=== PATIENT | male | born 1990 | race Caucasian/White ===

== ENCOUNTER 2017-03-28 19:50 | Emergency (ER) | payer SELFPAY ==
[~2017-03-28] VITALS: Ht 177.8 cm; Wt 81.6 kg
[~2017-03-28 19:50] MED LIST: ANAPROX DS550 MG PO; BACTRIM DS 8001 TA1 PO; FLEXERIL10 MG PO; FLONASE 0.05% 121 EA NAS; FLOVENT INH; HYDROCODONE BIT1 T11 PO; KEFLEX500 MG PO; MOTRIN800 MG PO; NAPROSYN500 MG PO; NORCO 325 MG-51 TAB PO; PERCOCET 325 MG1 TA7 PO; TOBREX OPHTH S2.5 ML OPH; TRAMADOL HCL50 MG PO; VICODIN 5/500 505 MG PO; VICODIN 500 MG-1 TAB PO; [UNRECOGNIZED DRUG - OTHER]
[2017-03-28] MEDS ORDERED: BUPRENORPHINE-N1 TAB SL (20:08)
[2017-03-28] MEDS ORDERED: CLARITIN10 MG PO (20:27)
== END 2017-03-28 20:48 | disposition home or self-care (01) ==
LOC: ED 19:50
DX: T78.40XA Allergy, unspecified, initial encounter (principal); H10.11 Acute atopic conjunctivitis, right eye; F17.200 Nicotine dependence, unspecified, uncomplicated; Z79.899 Other long term (current) drug therapy; X58.XXXA Exposure to other specified factors, initial encounter

== ENCOUNTER → 2018-02-16 | Outpatient (CLI) | payer BC ==
[~2018-02-16] MED LIST changes: +BUPRENORPHINE-N1 TAB SL; +CLARITIN10 MG PO
[2018-02-16 15:30] LABS: URINE AMPHETAMINES < 1000 (1000ng/ml); URINE BARBITURATES < 200 (200ng/ml); URINE BENZODIAZEPINES < 200 (200ng/ml); URINE CANNABINOIDS (THC) < 50 (50ng/ml); URINE COCAINE < 300 (300ng/ml); URINE METHADONE < 300 (300ng/ml); URINE OPIATES < 300 (300ng/ml); URINE PHENCYCLIDINE < 25 (25ng/ml)
== END | disposition home or self-care (01) ==
LOC: LAB 14:55
PROVIDERS: Internal Medicine
DX: F11.20 Opioid dependence, uncomplicated (principal)

== ENCOUNTER → 2018-11-30 | Outpatient (CLI) | payer BC ==
[2018-11-30 15:16] LABS: URINE AMPHETAMINES < 1000 (1000ng/ml); URINE BARBITURATES < 200 (200ng/ml); URINE BENZODIAZEPINES < 200 (200ng/ml); URINE CANNABINOIDS (THC) < 50 (50ng/ml); URINE COCAINE < 300 (300ng/ml); URINE METHADONE < 300 (300ng/ml); URINE OPIATES < 300 (300ng/ml)
[2018-11-30 15:17] LABS: URINE PHENCYCLIDINE < 25 (25ng/ml)
== END | disposition home or self-care (01) ==
LOC: LAB 14:18
PROVIDERS: Internal Medicine
DX: F11.20 Opioid dependence, uncomplicated (principal)

== ENCOUNTER → 2019-09-18 | Outpatient (CLI) | payer BC ==
[2019-09-18 16:03] LABS: URINE AMPHETAMINES < 1000 (1000ng/ml); URINE BARBITURATES < 200 (200ng/ml); URINE BENZODIAZEPINES < 200 (200ng/ml); URINE CANNABINOIDS (THC) < 50 (50ng/ml); URINE COCAINE < 300 (300ng/ml); URINE METHADONE < 300 (300ng/ml); URINE OPIATES < 300 (300ng/ml)
[2019-09-18 16:04] LABS: URINE PHENCYCLIDINE < 25 (25ng/ml)
== END | disposition home or self-care (01) ==
LOC: LAB 13:54
PROVIDERS: Internal Medicine
DX: F11.20 Opioid dependence, uncomplicated (principal)

== ENCOUNTER → 2020-07-08 | Outpatient (CLI) | payer BC ==
[2020-07-08 14:29] LABS: URINE AMPHETAMINES < 1000 (1000ng/ml); URINE BARBITURATES < 200 (200ng/ml); URINE BENZODIAZEPINES < 200 (200ng/ml); URINE CANNABINOIDS (THC) < 50 (50ng/ml); URINE COCAINE < 300 (300ng/ml); URINE METHADONE < 300 (300ng/ml); URINE OPIATES < 300 (300ng/ml)
[2020-07-08 14:30] LABS: URINE PHENCYCLIDINE < 25 (25ng/ml)
== END | disposition home or self-care (01) ==
LOC: LAB 14:02
PROVIDERS: ATTEND Internal Medicine
DX: F11.20 Opioid dependence, uncomplicated (principal)

== ENCOUNTER → 2020-10-08 | Outpatient (CLI) | payer BC | END | disposition home or self-care (01) | LOC: CT 10:00 | PROVIDERS: ATTEND Podiatrist Foot & Ankle Surgery | DX: M11.272 Other chondrocalcinosis, left ankle and foot (principal) ==

== ENCOUNTER → 2021-07-31 | Outpatient (CLI) | payer OTHER | END | disposition home or self-care (01) | LOC: COVID19 15:44 | PROVIDERS: ATTEND Internal Medicine | DX: Z11.52 Encounter for screening for COVID-19 (principal) ==

== ENCOUNTER → 2021-10-30 | Outpatient (CLI) | payer BC | END | disposition home or self-care (01) | LOC: COVID19 16:56 | PROVIDERS: ATTEND Internal Medicine | DX: U07.1 COVID-19 (principal) ==

== ENCOUNTER → 2022-02-25 | Outpatient (CLI) | payer OTHER ==
[2022-02-25 11:17] LABS: URINE AMPHETAMINES < 1000 (1000ng/ml); URINE BARBITURATES < 200 (200ng/ml); URINE BENZODIAZEPINES < 200 (200ng/ml); URINE CANNABINOIDS (THC) < 50 (50ng/ml); URINE COCAINE < 300 (300ng/ml); URINE METHADONE < 300 (300ng/ml); URINE OPIATES < 300 (300ng/ml)
[2022-02-25 11:18] LABS: URINE PHENCYCLIDINE < 25 (25ng/ml)
== END | disposition home or self-care (01) ==
LOC: LAB 10:52
PROVIDERS: ATTEND Internal Medicine
DX: F11.20 Opioid dependence, uncomplicated (principal)

== ENCOUNTER → 2023-12-15 | Outpatient (CLI) | payer OTHER ==
[~2023-12-15] MED LIST changes: +AMOX-CLAV 875-1 EACH PO
[2023-12-15 11:35] LABS: BASO % 0.9 % (0.0-1.0); EOS # 0.3 10*3/uL (0.0-0.4); EOS % 7.6 % (1.0-4.0); HEMATOCRIT 47.3 % (42.0-52.0); LYMPH # 1.3 10*3/uL (1.3-4.4); LYMPH % 28.7 % (27.0-41.0); MEAN CELL VOLUME 85.4 fl (80.0-94.0); MEAN CORPUSCULAR HGB CONC 32.8 g/dl (33.0-37.0); MEAN PLATELET VOLUME 9.4 fl (9.6-12.3); MONO # 0.4 10*3/uL (0.1-1.0); MONO % 8.5 % (3.0-9.0); NEUT # 2.4 10*3/uL (2.3-7.9); NEUT % 54.1 % (47.0-73.0); PLATELET COUNT AUTOMATED 211 10*3/uL (130-400); RED BLOOD COUNT 5.54 10*6/uL (4.50-5.90); RED CELL DISTRI WIDTH 12.5 % (0-14.5); WHITE BLOOD COUNT 4.4 10*3/uL (4.8-10.8)
[2023-12-15 11:58] LABS: TOTAL PROTEIN 7.4 gm/dL (6.0-8.0)
[2023-12-16 08:10] LABS: HEPATITIS B SURFACE AB Non Reactive (.)
== END | disposition home or self-care (01) ==
LOC: LAB 11:07
PROVIDERS: ATTEND Nurse Practitioner Family
DX: F11.20 Opioid dependence, uncomplicated (principal)

== ENCOUNTER → 2024-01-12 | Outpatient (CLI) | payer OTHER ==
[2024-01-12 16:12] LABS: ALKALINE PHOSPHATASE 46 U/L (46-116); BUN 13 mg/dl (9-23); CHLORIDE 102 mmol/L (98-107); POTASSIUM 4.8 mmol/L (3.4-5.1); SGPT/ALT 22 U/L (5-49); TOTAL PROTEIN 7.6 gm/dL (6.0-8.0)
== END | disposition home or self-care (01) ==
LOC: LAB 15:37
PROVIDERS: ATTEND Nurse Practitioner Family
DX: F11.20 Opioid dependence, uncomplicated (principal)